=== PATIENT | male | born 1990 ===

== ENCOUNTER → 2024-08-02 15:47 | Outpatient (BNVA) | payer OTHER, SELFPAY | PROVIDERS: PCP Nurse Practitioner Family; Visit Provider Internal Medicine ==

== ENCOUNTER 2024-09-29 12:35 | Outpatient (AMB) | payer OTHER, SELFPAY ==
--- NOTE | 2024-09-29 12:35 | MHC.OFFVIS ---
Intake Visit Reasons: Diarrhea Intake Note: Demarco presents as a telehealth for diarrhea. CC: States he went to [place] in January and he felt sick to his stomach. They did procedures and he was told he has gastritis and a bacteria in his stomach. He was given 40 days of antibiotics as treatment. He states the bacteria was H Pylori. HE still has some GERD but states that it is not as bad as it was before. 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 Reports developed abd pain, nausea and diarrhea when he was in [place] back in Jan. Had an egd/colo done there and was prescribed amoxicillin x 10 days omeprazole for 40 days. Sx improved with this. Now main CC is occasional heartburn for which he takes tums. No further abd pain, N,V,D. No unnitentional weight loss. No rectal bleeding. Father: colon ca in his 70s. [facility] Surgical History (Updated 09/29/24 @ 12:36 by ALICE Sousa) History of esophagogastroduodenoscopy (EGD) Hx of colonoscopy Review of Systems Const All systems reviewed & are unremarkable except as noted in HPI and below Physical Exam Vital Signs: Video visit: No acute distress No icterus noted No facial asymmetry Speaking in full sentences Telehealth Telehealth Telehealth Platform: [facility] Location of provider rendering services: practice address Location of patient: address on file Patient Identification confirmed using: Name, : Yes Telehealth method: video Patient verbally consented to treatment: Yes Patient verbally consented to billing insurance company: Yes Patient informed of any privacy concerns related to visit: Yes Minutes spent on Phone/Video with Pt.: 20 Assessment & Plan Assessment & Plan (1) GERD (gastroesophageal reflux disease): Code(s): K21.9 - Gastro-esophageal reflux disease without esophagitis Category: Medical (2) History of gastritis: Code(s): Z87.19 - Personal history of other diseases of the digestive system Category: Medical (3) Family history of colon cancer: Code(s): Z80.0 - Family history of malignant neoplasm of digestive organs Category: Medical Plan 1. Unclear infection back in Jan 2024. Could potentially have been H pylori, especially given report of concurrent gastritis. Will get a test of cure. Plan: -stool H pylori testing done -patient aware to avoid anti secretory medications for 2 weeks prior to testing done 2. Pyrosis: Likely secondary to GERD versus esophagitis versus NERD. Plan: -check barium swallow -okay to take Tums p.r.n. for now -if GERD confirmed in a barium swallow, would recommend Pepcid 3. Family history of colon cancer Patient aware to start screening early, that is at 40 years of age. Follow-up in 2 months Orders: Orders [place] barium swallow Today K21.9 - Gastro-esophageal reflux disease without esophagitis H pylori Ag Stool Today Z87.19 - Personal history of other diseases of the digestive system Coding Level of Care Code New Pt Level 4 (13280) Diagnoses GERD (gastroesophageal reflux disease) K21.9 History of gastritis Z87.19 Family history of colon cancer Z80.0
--- OUTSIDE RECORDS SUMMARY | 2024-09-29 13:13 | XMS_ITS | Clinical Summary ---
Author Organization [facility] Address [address] [place] [address] Phone Care Team Providers Care Service Captain Name Role Phone Tasia Peguero MD Primary Care Prov ider Allergies No known active allergies Medications fluticasone propionate (FLONASE) 50 mcg/actuation nasal spray 1 [place] by Nasal route daily. 1 spray each nostril daily 12/02/2020 Active Active Problems Problem Noted Date Diagnosed Date Chronic headaches 11/08/2017 Overview (07/05/2024): Abnormal CAT scan MRI 06/09/17 has been to see neurology diagnosed with headaches no further workup needed Immunizations Name Administration Dates Next Due Influenza Quadravalent, MDCK , 0.5ml, with preservative (Flucelvax) 6mo and older 05/03/2017 Influenza Quadrivalent, 0.5m l, preservative free (Fluarix; FluLaval; Fluzone) ages 6mo and older (Afluria) 3yo and older 04/19/2020 Surgical History Surgery Date Site/Laterality Comments OTHER SURGICAL HISTORY PROCEDURE: DENIES PREVIOUS SURGERY Medical History Medical History Date Comments Patient denies medical problems DX:Patient denies medical problems Tobacco abuse 05/03/2017 DX:Tobacco abuse Chronic headaches 11/08/2017 DX:Chronic hea daches; COMMENT: Abnormal CAT scan MRI 06/09/17 has been to see neurology diagnosed with headaches no further workup needed Family History Medical History Relation Name Comments Hyperlipidemia Father Hypertension Father Other: history of trichonosis Father Hyperlipidemia Mother Hypertension Mother Other: cancer unknown Sister pancre atic at age 32 Relation Name Status Comments Father Alive Mother Alive Sister Social History Tobacco Use Types Packs/Day Years Used Date Smoking Tobacco: Former Smokeless Tobacco: Never Alcohol Use Standard Drinks/Week Comments No 0 (1 standard drink = 0.6 oz pur e alcohol) Sex and Gender Information Value Date Recorded Sex Assigned at Not on file Legal Sex Male 3:03 PM EST Gender Identity Not on file Sexual Orientation Not on file Obstetrics History Plan of Treatment Health Maintenance Due Date Last Done Comments Hepatitis B Vaccines (1 of 3 - 19+ 3-dose series) 01/13/2008 Depression Screening 05/20/2022 HIV Screening 05/20/2022 Social Influencers of Health Screening 05/20/2022 COVID-19 Vaccine (3 - 2023-2 5 season) 2024 10/27/2020, 10/06/2020 Influenza Vaccine (Season Ended) 2025 04/19/2020, 05/03/2017 Cholesterol Screening (Lipid Panel) 08/17/2027 08/17/2022, 08/17/2022, 07/21/2019 DTaP,Tdap,and Td Vaccines (2 - Td or Tdap) 01/19/2029 01/19/2019 Hepatitis C Screening Completed 08/17/2022 , 11/06/2020 HIB Vaccines Aged Out No longer eligi ble based on patient's age to complete this topic HPV Vaccines Aged Out No longer eligi ble based on patient's age to complete this topic Hepatitis A Vaccines Aged Out No long er eligible based on patient's age to complete this topic IPV Vaccines Aged Out No longer eligi ble based on patient's age to complete this topic MMR Vaccines Aged Out No longer eligi ble based on patient's age to complete this topic Meningococcal ACWY Vaccine Aged Out N o longer eligible based on patient's age to complete this topic Meningococcal B Vaccine Aged Out No l onger eligible based on patient's age to complete this topic Pneumococcal Vaccine: Pediatrics (0 to 5 Years) and At-Risk Patients (6 to 64 Years) Aged Out No longer eligible b ased on patient's age to complete this topic RSV Immunization Patients Under 20 months Aged Out No longer eligible b ased on patient's age to complete this topic Varicella Vaccines Aged Out No longer eligible based on patient's age to complete this topic Procedures Procedure Name Priority Date/Time Associated Diagnosis Comments HM HEPATITIS C SCREENING Routine 11/06/2020 LIPID PANEL Routine 07/21/2019 from Last 3 Months or Most Recently Relevant to Health Maintenance Results * Hepatitis C Screening (11/06/2020) Hepatitis C Screening abstracted Historical Provider HEALTH MAINTENANCE Final Result * Lipid panel (07/21/2019) LDL/HDL Ratio 3 0 - 4 Triglycerides 95 0 - 150 mg/dL Cholesterol 152 0 - 200 mg/dL HDL 45 >=40 mg/dL LDL Cholesterol 88 0 - 100 mg/dL Blood Venous blood specimen / Unknown Historical Provider LAB BLOOD ORDERABLES Imani l Result from Last 3 Months or Most Recently Relevant to Health Maintenance Insurance [facility] [employer] Care Teams Service Captain Relationship Specialty Start Date End Date Tasia Peguero MD PCP - General Internal Medicine 03/09/17
--- OUTSIDE RECORDS SUMMARY | 2024-09-29 13:13 | XMS_ITS | Continuity of Care Document ---
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 Patient insisted he appreciates a bump on the left side of his throat that he can see in the mirror. A fiberoptic laryngoscopy was performed with excellent visualization of his nasopharynx and larynx and base of tongue with no lesions identified. Reassurance was given there are no malignancies or signs of infection. All structures are normal on my visualization. 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 No specific intervention is recommended at this time. He may stop his reflux regimen as he has found no relief after 3 months [email or web address] Not available 09/27/2024 09:05:42 Plan of Treatment Reminders Order Date Submit Date Provider Last Modified By Organization Details Last Modified Time Details Appointments None record ed. Lab None record ed. Referral None record ed. Procedures None record ed. Surgeries None record ed. Imaging None record ed. Medication Orders None record ed. Patient TargetsNo targets recorded. Patient InstructionsNo instructions recorded. Reason for Referral None Reported. Problems Name Problem SNOMED Code Status Onset Date Resolution Date Notes Provider Name and Address Organization Details Recorded Time Follow-up visit Active 2021 Medical surveilla nce following completed treatment ; Note: Date Diagnosed : 08/25/2021 10:15 AM (Z09) Medical surveilla nce following completed treatment ; Note: Date Diagnosed : 0 3:56 PM (Z09) ; Start Date : 0 Not Available [facility] 4 02:42:01 Nasal congestio n 39934415 Active 2020 Nasal congestio n; Note: Date Diagnosed : 1 9:36 AM (R09.81) Not Available [facility] 4 02:42:04 Deviated nasal septum 437588205 Active 2020 Deviated nasal septum; Note: Date Diagnosed : 1 9:45 AM (J34.2) Not Available [facility] 4 02:42:04 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 25445858 Active 2019 Otosclero sis involving oval window, nonoblite rative, right ear; Note: Date Diagnosed : 03/25/2020 12:39 PM (H80.01) Not Available [facility] 4 02:41:57 Hypertrop hy of nasal turbinate s 83370777 Active 2020 Hypertrop hy of nasal turbinate s; Note: Date Diagnosed : 1 9:45 AM (J34.3) Not Available [facility] 4 02:41:59 Tinnitus of left ear 67484563583 06 Active 2019 Tinnitus, left ear; Note: Date Diagnosed : 10/17/2019 1:26 PM (H93.12) Not Available [facility] 4 02:41:59 Abnormal auditory perceptio n 26237203 Active 2020 Other abnormal auditory perceptio ns, right ear; Note: Date Diagnosed : 10/31/2020 12:52 PM (H93.291) Not Available [facility] 4 02:42:01 Hearing loss of left ear 392492159 Active 2019 Unspecifi ed hearing loss, left ear; Note: Date Diagnosed : 10/17/2019 1:26 PM (H91.92) Not Available [facility] 4 02:42:02 Polyp of nasal cavity 372193738 Active 2021 Polyp of nasal cavity; Note: Date Diagnosed : 08/18/2021 1:50 PM (J33.0) Not Available [facility] 4 02:41:56 Tinnitus of right ear 71627366772 08 Active 2019 Tinnitus, right ear; Note: Date Diagnosed : 12/19/2019 4:30 PM (H93.11) Not Available [facility] 4 02:42:05 Conductiv e hearing loss 68664626 Active 2019 Conductiv e hearing loss, unilatera l, right ear, with unrestric pooja hearing on the contralat eral side; Note: Date Diagnosed : 12/19/2019 4:30 PM (H90.11) Not Available [facility] 4 02:42:06 Nicotine dependenc e 58684620 Active 2023 Nicotine dependenc e, other tobacco product, uncomplic ated; Note: Date Diagnosed : 06/24/2023 1:29 PM (F17.290) Not Available [facility] 02:42:03 Postopera tive follow-up visit Active 2021 Post op; Note: Date Diagnosed : 07/23/2014 1:04 PM (V67.00) Not Available [facility] 4 02:41:58 Posterior rhinorrhe a 63675926 Active 2023 Postnasal drip; Note: Date Diagnosed : 06/24/2023 1:29 PM (R09.82) Not Available [facility] 02:42:07 Feeling of lump in throat 098422839 Active 2023 DARREN CRABTREE MD [address] [place] [address],[place] [address], [place], [address] , [place] - [facility] 4 13:40:38 Laryngoph aryngeal reflux 013690658 Active 2024 WILLIAN LINDSAY PA-C [address] [facility],[place] [address], [place], [address] , [place] - [facility] 5 10:01:15 Clearing throat - hawking 747179508 Active 2024 DARREN CRABTREE MD [address] [place] [address],[place] [address], [place], [address] , [place] - [facility] 5 08:10:03 Problem Notes None recorded. Procedures Surgical History Date Name Laterality Status Provider Name and Address Organization Details Recorded Time 5 FOL_DP completed DARREN CRABTREE MD [address] [facility],[place] [address], [place], [address], [place] - [facility] 09/27/2024 09:04:22 4 FOL_DP completed DARREN CRABTREE MD [address] [facility], [place], [address], [place] - [facility] 11/19/2023 13:40:31 2 Septoplasty completed Neris Delarosa [place] - [facility] 11/19/2023 13:14:04 0 stapes operation completed Neris Delarosa [facility] 11/19/2023 13:13:37 Imaging Results None recorded. Procedure Notes None recorded. Medical Equipment None Reported. Allergies No known drug allergies Medications Name Sig Start Date Stop Date Status Note LastModified by Organization Details LastModified Time Saline Mist 0.65 % nasal spray aerosol 11/18 completed Medicatio n ID: [id number] Du ration Value: 30 Prescrib ed By Name: LESLIE Parks Name: Saline Mist Send Method: E-Prescri bed Subs Allowed: subs OK Specia l Instructi on: 2 sprays in both nostrils 4-6 times daily as needed Me dicationG enericNam e: Saline Mist Medi cation ID: [id number] Du ration Value: 30 Prescrib ed By Name: LESLIE Parks Name: Saline Mist Send Method: E-Prescri bed Subs Allowed: subs [place] Specia l Instructi on: 2 sprays in both nostrils 4-6 times daily as needed Me dicationG enericNam e: Saline Mist Not Available Not Available Not Available Ciloxan 0.3 % eye drops 11/18 completed Medicatio n ID: [id number] Du ration Value: 14 Prescrib ed By Name: LESLIE Crowe Name: Ciloxan S end Method: E-Prescri bed Subs Allowed: subs OK Specia l Instructi on: 4 drops into affected ear BID X 14 days Medi cationGen ericName: Ciloxan M edication ID: [id number] Du ration Value: 14 Prescrib ed By Name: LESLIE Crowe Name: Ciloxan S end Method: E-Prescri bed Subs Allowed: subs [place] Specia l Instructi on: 4 drops into affected ear BID X 14 days Medi cationGen ericName: Ciloxan Not Available Not Available Not Available mupirocin 2 % topical ointment Apply 1 a small amount twice a day 07/05 completed Medicatio n ID: [id number] Du ration Value: 14 Prescrib ed By Name: Lazaro rhodes MD Brand Name: mupirocin Send Method: E-Prescri bed Subs Allowed: subs OK Medica tiFacundo icName: mupirocin Not Available Not Available Not Available oxycodone 5 mg tablet 1 tablet by mouth 11/18 completed Medicatio n ID: [id number] Du ration Value: 3 Prescrib ed By Name: Gloria Steen Name: oxycodone Send Method: E-Prescri bed Subs Allowed: subs OK Medica Fernando icName: oxycodone Medicati on ID: [id number] Du ration Value: 3 Prescrib ed By Name: Golria Steen Name: oxycodone Send Method: E-Prescri bed Subs Allowed: subs OK Medica tionGener icName: oxycodone Not Available Not Available Not Available Vitals Date Recorded Body height Body mass index (BMI) Body weight Provider Name and Address Organization Details Last Updated DateTime 09/27/2024 167.64 cm 34.7 kg/m2 96095.36 g LINA CESPEDES [facility] 09/27/2024 08:55:20 Social History None recorded. Functional Status None recorded. Mental Status None recorded. Family History Nothing Reported. Medical History No medical history recorded. Past Encounters Encounter ID Performer Location Encounter Start Date Encounter Closed Date Diagnosis/Indication Diagnosis SNOMED-CT Code Diagnosis ICD10 Code Diagnosis Note [id number] DARREN CRABTREE MD [facility] [address] [facility] [place] [address] 09/27/2024 08:45:13 09/27/2024 11:38:20 Feeling of lump in throat 292892445 R09.89 Health Concerns Section Related Observation LastModified by Organization Detai ls LastModified Time None Recorded Concern Status LastModified by Organization Details LastModified Time None Recorded Payers Encounter Date Sequence Insurance Name Policy Number Policy Alcaraz Covered Member ID Alcaraz Member ID Guarantor Name 09/27/2024 1 [facility] [id number] Demarco Doss [id number] Demarco Doss Notes Date Note Type Note Provider Name and Address Organization Details Recorded Time 09/27/2024 text/html globusreports he has a 2 yr hx of mucus in throat in [facility] it is thicksees a bump on left side of throat06/24/23 nasal endoscopy was benign11/19/23 FOL benigntobacco - <1/2ppd, was able to stop since 06/2023water - 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 advised smoking cessation PSH:08/18/21 [facility], Moon, septo, turbs1/11/07 [facility], Jose Enrique, Right laser stapes DARREN CRABTREE MD [address] [address], [place], [address], [facility] - [facility] 09/27/2024 09:05:55
--- OUTSIDE RECORDS SUMMARY | 2024-09-29 13:13 | XMS_ITS | Data Portability ---
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 He feels it is worse in the morning. Previously a nasal endoscopy was benign. A fiberoptic laryngoscopy was performed today which was also unremarkable. He feels the sensation present at this very moment while I am looking directly at it it appears clear with no sign of infection or masses. I have given him reassurance and congratulated him on his smoking cessation. Given the benign findings I recommended he use nasal saline and stay well-hydrated as the mucus is otherwise normal. He appeared in moderate disbelief and inquired whether it is possible something from his chest is reaching his throat. While reflux is considered, I do not see any evidence of any mucous in his throat at this time despite his sensation. [email or web address] Not available 11/19/2023 13:42:12 07/05/2024 07/05/2024 Patient with globus, throat clearing, and phlegm in the throat. No nasal symptoms. Physical exam unrevealing. Laryngoscopy previously benign October 2023. Reviewed differential diagnosis to include laryngopharyngea l reflux most likely versus less likely nasal causes such as postnasal drip. Reviewed his 30 day trial of low dose omeprazole may not have been long enough or strong enough to combat the LPR. Recommend 90 day trial of omeprazole 40 mg taken 30 minutes before first food or beverage of the day, along with famotidine 40 mg every evening. Return in 3 months; if not improved or resolved would consider CT sinus +/- allergy testing. [email or web address] Not available 07/05/2024 10:55:11 09/27/2024 09/27/2024 Thorough examination of the oropharynx [...] Details Last Modified Time Details Appointments None recorded. Lab None recorded. Referral None recorded. Procedures None recorded. Surgeries None recorded. Imaging None recorded. Medication Orders omeprazole 40 mg capsule,del ayed release 2024 025 [facility]armacy #[id number], [address] [place] [address], [id number], 5 08:55:30 famotidine 40 mg tablet 2024 025 [facility]armacy #[id number], [address] [place] [address], [id number], 08:55:28 Patient TargetsNo targets recorded. Patient InstructionsNo instructions recorded. Reason for Referral None Reported. Results Created Date Observation Date Name Description Value Unit Range Abnormal Flag Note LastModifiedBy Organization Detail LastModifiedTime 02/09/20 24 10/21/2020 imagi ng/di agnos tic resul t No observ ation record ed. [email or web address] Not Available 20:40:12 02/09/20 24 12/19/2019 imagi ng/di agnos tic resul t No observ ation record ed. [email or web address] Not Available 20:40:30 02/09/20 24 05/14/2020 imagi ng/di agnos tic resul t No observ ation record ed. [email or web address] Not Available 20:40:45 Result Notes None recorded. Problems Name Problem SNOMED Code Status Onset Date Resolution Date Notes Provider Name and Address Organization Details Recorded Time Follow-up visit Active 2021 Medical surveilla nce following completed treatment ; Note: Date Diagnosed : 08/25/2021 10:15 AM (Z09) Medical surveilla nce following completed treatment ; Note: Date Diagnosed : 0 3:56 PM (Z09) ; Start Date : 0 Not Available [facility] 4 02:42:01 Nasal congestio n 52641760 Active 2020 Nasal congestio n; Note: Date Diagnosed : 1 9:36 AM (R09.81) Not Available [facility] 4 02:42:04 Deviated nasal septum 296813973 Active 2020 Deviated nasal septum; Note: Date Diagnosed : 1 9:45 AM (J34.2) Not Available [facility] 4 02:42:04 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 48308005 Active 2019 Otosclero sis involving oval window, nonoblite rative, right ear; Note: Date Diagnosed : 03/25/2020 12:39 PM (H80.01) Not Available [facility] 4 02:41:57 Hypertrop hy of nasal turbinate s 21033014 Active 2020 Hypertrop hy of nasal turbinate s; Note: Date Diagnosed : 1 9:45 AM (J34.3) Not Available [facility] 4 02:41:59 Tinnitus of left ear 23050409515 06 Active 2019 Tinnitus, left ear; Note: Date Diagnosed : 10/17/2019 1:26 PM (H93.12) Not Available [facility] 4 02:41:59 Abnormal auditory perceptio n 35329395 Active 2020 Other abnormal auditory perceptio ns, right ear; Note: Date Diagnosed : 10/31/2020 12:52 PM (H93.291) Not Available [facility] 4 02:42:01 Hearing loss of left ear 772396702 Active 2019 Unspecifi ed hearing loss, left ear; Note: Date Diagnosed : 10/17/2019 1:26 PM (H91.92) Not Available [facility] 4 02:42:02 Polyp of nasal cavity 742476747 Active 2021 Polyp of nasal cavity; Note: Date Diagnosed : 08/18/2021 1:50 PM (J33.0) Not Available [facility] 4 02:41:56 Tinnitus of right ear 62423970334 08 Active 2019 Tinnitus, right ear; Note: Date Diagnosed : 12/19/2019 4:30 PM (H93.11) Not Available [facility] 4 02:42:05 Conductiv e hearing loss 19518774 Active 2019 Conductiv e hearing loss, unilatera l, right ear, with unrestric pooja hearing on the contralat eral side; Note: Date Diagnosed : 12/19/2019 4:30 PM (H90.11) Not Available [facility] 4 02:42:06 Nicotine dependenc e 69099579 Active 2023 Nicotine dependenc e, other tobacco product, uncomplic ated; Note: Date Diagnosed : 06/24/2023 1:29 PM (F17.290) Not Available [facility] 4 02:42:03 Postopera tive follow-up visit Active 2021 Post op; Note: Date Diagnosed : 07/23/2014 1:04 PM (V67.00) Not Available [facility] 4 02:41:58 Posterior rhinorrhe a 19211549 Active 2023 Postnasal drip; Note: Date Diagnosed : 06/24/2023 1:29 PM (R09.82) Not Available [facility] 4 02:42:07 Feeling of lump in throat 647860598 Active 2023 DARREN CRABTREE MD [address] [place] [address], [place], [address] , [facility] - [facility] 4 13:40:38 Laryngoph aryngeal reflux 198166972 Active 2024 WILLIAN LINDSAY PA-C [address] [facility],[place] [address], [place], [address] , [facility] - [facility] 5 10:01:15 Clearing throat - hawking 332898466 Active 2024 DARREN CRABTREE MD [address] [facility],[place] [address], [place], [address] , [facility] - [facility] 5 08:10:03 Problem Notes None recorded. Procedures Surgical History Date Name Laterality Status Provider Name and Address Organization Details Recorded Time 5 FOL_DP completed DARREN CRABTREE MD [address] [place] [address],[place] [address], [place], [address], [facility] - [facility] 09/27/2024 09:04:22 4 FOL_DP completed DARREN CRABTREE MD [address] [place] [address],[place] [address], [place], [address], [place] - [facility] 11/19/2023 13:40:31 2 Septoplasty completed Neris Delarosa [place] - [facility] 11/19/2023 13:14:04 0 stapes operation completed Neris Delarosa [place] - [facility] 11/19/2023 13:13:37 Imaging Results Imaging Date Name Status LastModified by Organ [facility] Details LastModified Time 10/21/2020 imaging/diag nostic result completed Information not available 02/09/2024 20:40:12 12/19/2019 imaging/diag nostic result completed Information not available 02/09/2024 20:40:30 05/14/2020 imaging/diag nostic result completed Information not available 02/09/2024 20:40:45 Procedure Notes None recorded. Medical Equipment None Reported. Allergies No known drug allergies Medications Name Sig Start Date Stop Date Status Note LastModified by Organization Details LastModified Time Saline Mist 0.65 % nasal spray aerosol 03/07/ 2022 05/31 /2024 completed Medicatio n ID: [id number] Du ration Value: 30 Prescrib ed By Name: LESLIE Parks Name: Saline Mist Send Method: E-Prescri bed Subs Allowed: subs OK Specia l Instructi on: 2 sprays in both nostrils 4-6 times daily as needed Me dicationG enericNam e: Saline Mist Medi cation ID: [id number] Du ration Value: 30 Prescrib ed By Name: LESLIE Parks Name: Saline Mist Send Method: E-Prescri bed Subs Allowed: subs [place] Specia l Instructi on: 2 sprays in both nostrils 4-6 times daily as needed Me dicationG enericNam e: Saline Mist Not Available Not Available Not Available Ciloxan 0.3 % eye drops 11/18 completed Medicatio n ID: [id number] Du ration Value: 14 Prescrib ed By Name: LESLIE Crowe Name: Ciloxan S end Method: E-Prescri bed Subs Allowed: subs [place] Specia l Instructi on: 4 drops into affected ear BID X 14 days Medi cationGen ericName: Ciloxan M edication ID: [id number] Du ration Value: 14 Prescrib ed By Name: LESLIE Crowe Name: Ciloxan S end Method: E-Prescri bed Subs Allowed: subs [place] Specia l Instructi on: 4 drops into affected ear BID X 14 days Medi cationGen ericName: Ciloxan Not Available Not Available Not Available mupirocin 2 % topical ointment Apply 1 a small amount twice a day 07/05 completed Medicatio n ID: [id number] Du ration Value: 14 Prescrib ed By Name: Lazaro garcía MD Brand Name: mupirocin Send Method: E-Prescri bed Subs Allowed: subs OK Medica tionGener icName: mupirocin Not Available Not Available Not Available oxycodone 5 mg tablet 1 tablet by mouth 11/18 completed Medicatio n ID: [id number] Du ration Value: 3 Prescrib ed By Name: Gloria Steen d Name: oxycodone Send Method: E-Prescri bed Subs Allowed: subs OK Medica tionGener icName: oxycodone Medicati on ID: [id number] Du ration Value: 3 Prescrib ed By Name: Gloria Steen Name: oxycodone Send Method: E-Prescri bed Subs Allowed: subs [place] Medica tionGener icName: oxycodone Not Available Not Available Not Available Vitals Date Recorded Body height Body mass index (BMI) Body weight Provider Name and Address Organization Details Last Updated DateTime 09/27/2024 167.64 cm 34.7 kg/m2 17844.36 g LINA CESPEDES [place] - [facility] 09/27/2024 08:55:20 Date Recorded Body height Body mass index (BMI) Body weight Provider Name and Address Organization Details Last Updated DateTime 11/19/2023 167.64 cm 33.6 kg/m2 66555.21 g Neris Delarosa [place] - [facility] 11/19/2023 13:10:36 Date Recorded Body height Body mass index (BMI) Body weight Provider Name and Address Organization Details Last Updated DateTime 07/05/2024 167.64 cm 35.2 kg/m2 34595.14 g Kati Mccord [place] - [facility] 07/05/2024 09:47:24 Social History None recorded. Functional Status None recorded. Mental Status None recorded. Family History Nothing Reported. Medical History No medical history recorded. Past Encounters Encounter ID Performer Location Encounter Start Date Encounter Closed Date Diagnosis/Indication Diagnosis SNOMED-CT Code Diagnosis ICD10 Code Diagnosis Note [id number] DARREN CRABTREE MD [facility] [address] [address] 11/19/2023 12:57:32 11/19/2023 13:56:14 Feeling of lump in throat 550013638 R09.89 [id number] DARREN CRABTREE MD [facility] [address] [address] 07/05/2024 09:35:06 07/05/2024 10:04:27 Laryngopharyngeal reflux 606966832 K21.9 Feeling of lump in throat 085688655 R09.89 Clearing t hroat - hawking 761127546 R05.9 [id number] DARREN CRABTREE MD [facility] [address] [address] 09/27/2024 08:45:13 09/27/2024 11:38:20 Feeling of lump in throat 501358430 R09.89 Health Concerns Section Related Observation LastModified by Organization Detai ls LastModified Time None Recorded Concern Status LastModified by Organization Details LastModified Time None Recorded Advance Directives Directive None Recorded Payers Encounter Date Sequence Insurance Name Policy Number Policy Alcaraz Covered Member ID Alcaraz Member ID Guarantor Name 11/19/2023 1 [facility] NET PLAN (MEDICAID HMO) [id number] Demarco Rivasa [id number] Demarco García Romario 07/05/2024 1 [facility] [id number] Demarco R Romario [id number] Demarco García Romario 09/27/2024 1 [facility] [id number] Demarco R Romario [id number] Demarco R Romario Notes Date Note Type Note Provider Name and Address Organization Details Recorded Time 11/19/2023 text/html patient of Dr Loredo of septoplasty 08/18/21reports he has a 2 yr hx of mucus in throat in [facility] it is thicksometimes uvula gets stuck to side of throat06/24/23 nasal endoscopy was benign tobacco - <1/2ppd, was able to stop since 06/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 Reports he has constant sticky yellow phlegm in the back of the throat. Feels like his uvula gets caught in the phlegm. This leads to a sensation of inability to breathe through the throat. He clears his throat frequently. Has a globus sensation at the base of throat in the morning. He feels his voice has changed, sounds like I'm sick. None of this has improved since he quit smoking. He had endoscopy in [place] demonstrating h. pylori, but this was treated successfully without change in symptoms. He cannot specifically endorse postnasal drip, and there is no anterior rhinorrhea nor excessive sneezing. Denies pyrosis. There is intermittent sore throat which he attributes to his forceful attempts to bring the phlegm up. There has been no dysphagia and no hemoptysis. At an evaluation here 11/19/23, laryngoscopy was benign. He has tried antibiotics, 30 day course of omeprazole BID, and some nasal sprays. Nothing improved this. PSH:06/24/23 Plosky - mucus in throat, FOL normal. 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 advised smoking cessation PSH:08/18/21 PVSMoon Hatch septo, [email or web address] Jose Enrique LITTLE, Right laser stapes DARREN CRABTREE MD [address] [facility],[place] [address] [place] [address], [address], [place] - [facility] 09/27/2024 09:05:55
--- OUTSIDE RECORDS SUMMARY | 2024-09-29 13:13 | XMS_ITS | Clinical Summary ---
Author Organization [facility] Address [address] [place] [address] Care Team Providers Care Laundry Manager Name Role Phone Yasmany Pugh MD Primary Care Provider [phone] Source Comments PLEASE NOTE, if this patient is a minor, it may be UNLAWFUL to discuss sensitive information that is contained in these records (such as FAMILY PLANNING, MENTAL HEALTH or SUBSTANCE ABUSE) with the minor patient's parent or other person without the patient's specific authorization.[facility] Allergies No known active allergies Medications varenicline (CHANTIX) 1 mg tabletIndicatio ns:Encounter for smoking cessation counseling Take 1 Tablet by mouth 2 (two) times daily 60 Tablet 1 3 Active varenicline (CHANTIX STARTING MONTH ) 0.5 mg (11)- 1 mg (42) tabletIndicatio ns:Encounter for smoking cessation counseling UAD 1 Packet 3 Active loratadine (CLARITIN) 10 mg tabletIndicatio ns:Throat congestion Take 1 Tablet by mouth once daily as needed for allergies 90 Tablet 4 Active diphenhydrAMINE (BENADRYL) 50 mg capsuleIndicati ons:Throat congestion Take 1 Capsule by mouth nightly at bedtime as needed for allergies or rhinitis 90 Capsule 4 Active predniSONE 50 mg tablet Take 1 Tablet by mouth once daily 5 Tablet 4 Active clindamycin phosphate (CLINDAGEL) 1 % gel APPLY TO FACE AND SCALP TWICE DAILY AFTER BENZOYL PEROXIDE WASH 3 Active benzoyl peroxide (BENZAC AC) 10 % APPLY TO FACE AND SCALP TWICE A DAY AND RINSE 3 Active nystatin (MYCOSTATIN) 100,000 unit/mL suspensionIndic ations:Throat congestion Take 1 mL by mouth 4 (four) times daily 60 mL Active Active Problems Problem Noted Date Diagnosed Date Financial difficulties 01/26/2023 Housing problems 01/26/2023 Chronic cervical pain 01/26/2023 Overview (02/03/2023): EKG showed NSR, HR 88bpm Failed trial of NSAIDs and muscle relaxant CT cervical spine wo showed mild disc protrusion along cervical spine PT referral pending Ortho referral pending Assessment & Plan (05/03/2023 9:48 AM EST): Failed trial of NSAIDs and muscle relaxant CT cervical spine wo showed mild disc protrusion along cervical spine PT referral pending Ortho referral pending Tobacco use 08/17/2022 Overview (05/03/2023): Tried Chantix 01/26/23 but stopped as he did not find this helpful Assessment & Plan (05/03/2023 9:57 AM EST): Start Chantix 01/26/23, Pt stopped using this as he did not find this helpful Smokes 1 pack a week Pt declined tobacco cessation referral Declined NRT Assessment & Plan (01/26/2023 11:15 AM EDT): Start Chantix 01/26/23 Smokes 1 pack a week Pt declined tobacco cessation referral Declined NRT Hypertriglyceridemia 12/17/2014 History of snoring 10/29/2014 Overview (10/29/2014): Sleep Studies done 10/12/2014 at [facility] mild obstructive sleep apnea Obesity 09/10/2014 Immunizations Immunization Administration Dates Next Due TDAP 01/19/2019 Family History Medical History Relation Name Comments Cardiovascular disease Father Hypertension Father Prostate Cancer Father Cardiovascular disease Mother Hypertension Mother Cardiovascular disease Sister Relation Name Status Comments Brother Alive Father Alive Mother Alive Sister Alive Social History Tobacco Use Types Packs/Day Years Used Date Smoking Tobacco: Every Day Cigarettes 0.5 4 Passive Smoke Exposure: Never Smokeless Tobacco: Current Tobacco Cessation:Ready to Q uit: Not Asked; Counseling Given: Yes Alcohol Use Standard Drinks/Week Comments Yes 0 (1 standard drink = 0.6 oz pur e alcohol) Occassionally Social Connections Answer Date Recorded Connectedness 0 05/03/2023 Financial Resource Strain Answer Date R ecorded Financial Resource Strain 0 2022 Stress Answer Date Recorded Stress 0 05/03/2023 Physical Activity Answer Date Recorded Physical Activity 0 08/17/2022 Food Insecurity Answer Date Recorded Food 0 05/03/2023 Transportation Needs Answer Date Record ed Transportation 0 05/03/2023 Housing Stability Answer Date Recorded Housing 0 05/03/2023 Safety and Environment Answer Date Geronimo rded Safety 0 05/03/2023 Utilities Answer Date Recorded Utilities 0 05/03/2023 Employment Answer Date Recorded Employment 0 08/17/2022 Sex and Gender Information Value Date Recorded Sex Assigned at Male 08/17/2022 8:28 AM PST Legal Sex Male 11:36 AM PDT Gender Identity Male 08/17/2022 8:28 AM PST Sexual Orientation Straight 08/17/2022 8: 28 AM PST Last Filed Vital Signs Vital Sign Reading Time Taken Comments Blood Pressure 122/89 10/20/2023 8:45 AM EDT Pulse 94 10/20/2023 8:45 AM EDT Temperature 37.1 ??C (98.8 ??F) 10/20/2023 8:45 AM ED T Respiratory Rate 16 10/20/2023 8:45 AM EDT Oxygen Saturation 97% 05/03/2023 9:15 AM EST Inhaled Oxygen Concentration - - Weight 96.6 kg (213 lb) 09/02/2023 11:15 AM EDT Height 171 cm (5' 7.32 ) 06/22/2023 10:31 AM EST Body Mass Index 33.04 06/22/2023 10:31 AM EST Plan of Treatment Health Maintenance Due Date Last Done Comments Anxiety Screening 1989 Imm-Hepatitis B (1 of 3 - 19 + 3-dose series) 01/13/2008 Imm-Pneumococcal (1 of 2 - PCV) 01/13/2008 Annual Preventive Care Visit 08/17/2023 08/17/2022, 09/10/2014 [id number] ( - season) 2024 021, 10/06/2020 Imm-Influenza (#1) 2024 04/19/2020, 05/03/2017 Alcohol and Drug Screen 06/21/2024 08/17/2022, 08/25 Depression Annual Screen 06/21/2024 08/17/2022, 08/20 Hypertension Screening (#1) 10/19/2024 Tobacco Cessation Counseling (#1) 10/19/2024 023 Diabetes Screening 08/17/2025 08/17/2022, 0 08/17/2022, 02/28/2014 Imm-DTaP/Tdap/Td (2 - Td or Tdap) 01/19/2029 019 HIV Screening Completed 08/17/2022 Hepatitis C Screening Completed 08/17/2022 Procedures Procedure Name Priority Date/Time Associated Diagnosis Comments HIV 1/2 AG & AB W/RFLX (4TH GEN) Routine 08/17/2022 11:32 AM EST Exposure to potential infection HEPATITIS C AB W/RFLX HCV RNA, QT, RT PCR Routine 08/17/2022 11:32 AM EST Exposure to potential infection COMPREHENSIVE METABOLIC PANEL Routine 08/17/2022 11:32 AM EST BMI 31.0-31.9,adult from Last 3 Months or Most Recently Relevant to Health Maintenance Results * HEPATITIS C AB W/RFLX HCV RNA, QT, RT PCR (08/17/2022 11:32 AM EST) HEPATITIS C ANTIBODY NON-REACT SHON NON-REACT SHON [employer] SIGNAL TO CUT-OFF 0.05 <1.00 [facility] [employer] [facility] Comment: HCV antibody was non-reactive. There is no laboratory evidence of HCV infection. In most cases, no further action is required. However, if recent HCV exposure is suspected, a test for HCV RNA (test code 00540) is suggested. For additional information please refer to http://education.[employer]/faq/LDI89q5 (This link is being provided for informational/ educational purposes only.) Blood Blood / Unknown 08/17/2022 1 1:32 AM EST 08/17/2022 11:33 AM EST Narrative [employer] [facility] - 08/18/2022 3:31 PM EST FASTING:YES us Yasmany Pugh MD LAB - BLOOD DRAW Final Result Performing Organization Address [facility]/ZIP Co de Phone Number [employer] [facility] [address] [address], [employer] [address] [place] [address] * HIV 1/2 AG & AB W/RFLX (4TH GEN) (08/17/2022 11:32 AM EST) [facility] HIV AG/AB, 4TH GEN NON-REAC TIVE NON-REAC TIVE [employer] [facility] Comment: HIV-1 antigen and HIV-1/HIV-2 antibodies were not detected. There is no laboratory evidence of HIV infection. PLEASE NOTE: This information has been disclosed to you from records whose confidentiality may be protected by state law. ??If your state requires such protection, then the state law prohibits you from making any further disclosure of the information without the specific written consent of the person to whom it pertains, or as otherwise permitted by law. A general authorization for the release of medical or other information is NOT sufficient for this purpose. ?? For additional information please refer to http://education.[employer]/faq/ZIB086 (This link is being provided for informational/ educational purposes only.) The performance of this assay has not been clinically validated in patients less than 2 years old. Blood Blood / Unknown 08/17/2022 1 1:32 AM EST 08/17/2022 11:33 AM EST Narrative [employer] [facility] - 08/18/2022 3:31 PM EST FASTING:YES us Yasmany Pugh MD LAB - BLOOD DRAW Final Result Performing Organization Address [facility]/ZIP Co de Phone Number [employer] [facility] [address] [address], [employer] [address]) [place] [address] * (ABNORMAL) COMPREHENSIVE METABOLIC PANEL (08/17/2022 11:32 AM EST) GLUCOSE 92 65 - 99 mg/dL [employer] [facility] Comment: ?Fasting reference interval UREA NITROGEN (BUN) 15 7 - 25 mg/dL [employer] [facility] CREATININE (blood) 0.89 0.60 - 1.26 mg/dL [employer] [facility] EGFR 116 > OR = 60 mL/min/1 .73m2 [employer] [facility] Comment: The eGFR is based on the CKD-EPI 2020 equation. To calculate the new eGFR from a previous Creatinine or Cystatin C result, go to https://www.kidney.org/professionals/ kdoqi/gfr%5Fcalculator BUN/CREATININE RATIO NOT APPLICABLE 6 - [employer] [facility] SODIUM 138 135 - 146 mmol/L [employer] [facility] POTASSIUM 4.7 3.5 - 5.3 mmol/L [employer] [facility] CHLORIDE 103 98 - 110 mmol/L [employer] [facility] CARBON DIOXIDE 28 20 - 32 mmol/L [employer] [facility] CALCIUM 10.2 8.6 - 10.3 mg/dL [employer] [facility] PROTEIN, TOTAL 8.4(H) 6.1 - 8.1 g/dL [employer] [facility] ALBUMIN 4.8 3.6 - 5.1 g/dL [employer] [facility] GLOBULIN 3.6 1.9 - 3.7 g/dL (calc) [employer] [facility] ALBUMIN/GLOBUL IN RATIO 1.3 1.0 - 2.5 (calc) [employer] [facility] BILIRUBIN, TOTAL 0.4 0.2 - 1.2 mg/dL [employer] [facility] ALKALINE PHOSPHATASE 87 36 - 130 U/L [employer] [facility] AST 26 10 - 40 U/L [employer] [facility] ALT 45 9 - 46 U/L [employer] [facility] Blood Blood / Unknown 08/17/2022 1 1:32 AM EST 08/17/2022 11:33 AM EST Narrative [facility] [facility] - 08/18/2022 3:31 PM EST FASTING:YES Yasmany Pugh MD LAB - BLOOD DRAW Edited Result - Final [employer] [facility] [address] [address], [facility] [address]) [place] [address] from Last 3 Months or Most Recently Relevant to Health Maintenance Insurance [place] MED[place] [employer] [employer] Member Subscriber Plan / Payer (Ef fective 2023-Present) Name:Alfredito Evansley R Relation to Subscriber:Self Name:Alfredito Evansmiladis García Payer ID:[id number] Type:Medicaid Address: [address] [address] [place] [address] Care Teams Laundry Manager Relationship Specialty Start Date End Date Yasmany Pugh MD [address] [place] [address] PCP - General Family Medicine, Physician 11/02/22
== END 2024-09-29 15:51 | disposition home or self-care (01) ==
LOC: HO.HGI 12:35
PROVIDERS: PCP Nurse Practitioner Family; Visit Provider Internal Medicine
DX: K21.9 Gastro-esophageal reflux disease without esophagitis (principal); Z87.19 Personal history of other diseases of the digestive system; Z80.0 Family history of malignant neoplasm of digestive organs
CPT/HCPCS: 99204

== ENCOUNTER → 2024-09-29 12:35 | Outpatient (BNVA) | payer OTHER, SELFPAY | PROVIDERS: PCP Nurse Practitioner Family; Visit Provider Internal Medicine | DX: K21.9 Gastro-esophageal reflux disease without esophagitis (principal); R19.7 Diarrhea, unspecified; R10.9 Unspecified abdominal pain; Z80.0 Family history of malignant neoplasm of digestive organs; Z87.19 Personal history of other diseases of the digestive system | CPT/HCPCS: 99202 ==

== ENCOUNTER 2024-12-29 08:10 | Outpatient (REF) | payer OTHER, SELFPAY ==
--- NOTE | ~2024-12-29 | FL_ITS ---
EXAMINATION: XR FLUOROSCOPY ESOPHAGRAM CLINICAL INFORMATION: Patient complaining of reflux type symptoms x1 year. Mild globus sensation. 34-year-old male. COMPARISON: None TECHNIQUE: Fluoroscopic air contrast barium swallow examination was performed utilizing standard techniques with thin and thick barium and effervescent granules. Numerous spot images were obtained. Several fluoroscopic image hold cine sequences were also obtained. FINDINGS: ESOPHAGRAM: Lateral cine images of the oropharynx and hypopharynx demonstrate normal swallow mechanism with normal epiglottic inversion and soft palate elevation. No laryngeal penetration, glottic or subglottic aspiration identified. No nasopharyngeal reflux present. Hypopharyngeal structures appear normal without evidence of mass or diverticulum. There was no significant cricopharyngeal achalasia. Dual and single contrast images of the esophagus demonstrate normal caliber, contour, and mucosal pattern. No evidence of stricture, mass, or ulcerations identified. Esophageal peristalsis was normal. No evidence of hiatus hernia identified. There was mild gastroesophageal reflux noted during the examination to the level of the aortic arch. Dual contrast and single contrast images of the stomach demonstrated normal contour and mucosal pattern without evidence of mass, ulceration, or other abnormality. Normal gastric rugal fold pattern. Contrast freely passed into the gastric antrum and duodenal bulb without delay. Single and air-contrast images of the duodenal bulb demonstrate no abnormality. The duodenal sweep has a normal appearance, course, and mucosal fold appearance. There is a small second segment duodenal diverticulum. FLUOROSCOPY TIME: 2 minutes, 20 seconds Number of Spot Images:11 Number of cines obtained: 10 DOSE AREA PRODUCT: [id number] uGy-m2 (microgray-meter squared) FL/FL barium swallow with air IMPRESSION: 1. Normal esophagus. No evidence of hiatus hernia. 2. Mild gastroesophageal reflux noted to the level of the aortic arch. 3. Normal-appearing GE junction and stomach. 4. Small second segment duodenal diverticulum. Electronically signed by: Aldo Gibson MD 12/29/2024 08:56 AM EDT
--- OUTSIDE RECORDS SUMMARY | 2024-12-29 08:13 | XMS_ITS | Clinical Summary ---
Author Organization [facility] Address [address] [place] [address] Care Team Providers Care Lithographing Machine Operator Name Role Phone Yasmany Pugh MD Primary Care Provider [phone] Source Comments PLEASE NOTE, if this patient [...] Overview (10/29/2014): Sleep Studies done 10/12/2014 at [facility] mild obstructive sleep apnea Obesity 09/10/2014 Immunizations [...] 94 10/20/2023 8:45 AM EDT Temperature 37.1 C (98.8 F) 10/20/2023 8:45 AM EDT Respiratory Rate 16 10/20/2023 8:45 AM EDT [...] (1 of 2 - PCV) 01/13/2008 Annual Wellness (Adult): Ind icated (All Coverage) 08/17/2023 08/17/2022, 09/10/2014 Tobacco Screening 08/17/2023 08/17/2022 [id number] ( - 2024-25 season) 2024 021, 10/06/2020 Alcohol and Drug Screen 06/21/2024 08/17/2022, 08/25 Depression Annual Screen 06/21/2024 08/17/2022, 08/20 Hypertension Screening (#1) 10/19/2024 Tobacco Cessation Counseling (#1) 10/19/2024 023 Imm-Influenza (#1) 2025 04/19/2020, 05/03/2017 Diabetes Screening 08/17/2025 08/17/2022, 0 08/17/2022, 02/28/2014 [...] HEPATITIS C ANTIBODY NON-REACT SHON NON-REACT SHON [employer] SIGNAL TO CUT-OFF 0.05 <1.00 [facility] Comment: HCV antibody was non-reactive. There is no laboratory evidence of HCV infection. In most cases, no further action is required. However, if recent HCV exposure is suspected, a test for HCV RNA (test code 46490) is suggested. For additional information please refer to http://education.Intense/faq/IOG27j1 (This link is being provided for informational/ educational purposes only.) Blood Blood / Unknown 08/17/2022 1 1:32 AM EST 08/17/2022 11:33 AM EST Narrative [facility] - 08/18/2022 3:31 PM EST FASTING:YES us Yasmany Pugh MD LAB - BLOOD DRAW Final Result Performing Organization Address [facility] de Phone Number [facility] [address] [address], [facility] [address] ([facility] [place] [address] * HIV 1/2 AG & AB W/RFLX (4TH GEN) (08/17/2022 11:32 AM EST) [facility] HIV AG/AB, 4TH GEN NON-REAC TIVE NON-REAC TIVE [facility] Comment: HIV-1 antigen and HIV-1/HIV-2 antibodies were not detected. There is no laboratory evidence of HIV infection. PLEASE NOTE: This information has been disclosed to you from records whose confidentiality may be protected by state law. If your state requires such protection, then the state law prohibits you from making any further disclosure of the information without the specific written consent of the person to whom it pertains, or as otherwise permitted by law. A general authorization for the release of medical or other information is NOT sufficient for this purpose. For additional information please refer to http://education.Kihon.[employer]/faq/HYJ155 (This link is being provided for informational/ educational purposes only.) The performance of this assay has not been clinically validated in patients less than 2 years old. Blood Blood / Unknown 08/17/2022 1 1:32 AM EST 08/17/2022 11:33 AM EST Narrative [facility] - 08/18/2022 3:31 PM EST FASTING:YES us Yasmany Pugh MD LAB - BLOOD DRAW Final Result Performing Organization Address City/[facility]/ZIP Co de Phone Number [facility] [address] [address], [facility] [address] ([facility]) [place] [address] * (ABNORMAL) COMPRE METAB PANEL (08/17/2022 11:32 AM EST) GLUCOSE 92 65 - 99 mg/dL [facility] Comment: Fasting reference interval UREA NITROGEN (BUN) 15 7 - 25 mg/dL [facility] CREATININE (blood) 0.89 0.60 - 1.26 mg/dL [facility] EGFR 116 > OR = 60 mL/min/1 .73m2 [facility] Comment: The eGFR is based on the CKD-EPI 2020 equation. To calculate the new eGFR from a previous Creatinine or Cystatin C result, go to https://www.kidney.org/professionals/ kdoqi/gfr%5Fcalculator BUN/CREATININE RATIO NOT APPLICABLE 6 - [facility] SODIUM 138 135 - 146 mmol/L [facility] POTASSIUM 4.7 3.5 - 5.3 mmol/L [facility] CHLORIDE 103 98 - 110 mmol/L [facility] CARBON DIOXIDE 28 20 - 32 mmol/L [facility] CALCIUM 10.2 8.6 - 10.3 mg/dL [facility] PROTEIN, TOTAL 8.4(H) 6.1 - 8.1 g/dL [facility] ALBUMIN 4.8 3.6 - 5.1 g/dL [facility] GLOBULIN 3.6 1.9 - 3.7 g/dL (calc) [facility] ALBUMIN/GLOBUL IN RATIO 1.3 1.0 - 2.5 (calc) [facility] BILIRUBIN, TOTAL 0.4 0.2 - 1.2 mg/dL [facility] ALKALINE PHOSPHATASE 87 36 - 130 U/L [facility] AST 26 10 - 40 U/L [facility] ALT 45 9 - 46 U/L [facility] Blood Blood / Unknown 08/17/2022 1 1:32 AM EST 08/17/2022 11:33 AM EST Narrative [facility] - 08/18/2022 3:31 PM EST FASTING:YES Yasmany Pugh MD LAB - BLOOD DRAW Edited Result - Final [facility] [address] [address], [facility] [address] ([address]) [place] [address] from Last 3 Months or Most Recently Relevant to Health Maintenance Insurance [place] MEDICAID D[employer]AL [employer] Member Subscriber Plan / Payer (Ef fective 2023-Present) Name:Demarco Evans Relation to Subscriber:Self Name:Demarco Evans Payer ID:[id number] Type:Medicaid Address: [facility] [address] [place] [address] Care Teams Lithographing Machine Operator Relationship Specialty Start Date End Date Yasmany Pugh MD [address] [place] [address] PCP - General Family Medicine, Physician 11/02/22
--- OUTSIDE RECORDS SUMMARY | 2024-12-29 08:13 | XMS_ITS | Data Portability ---
Author Organization [place] - [facility], Allergy Address [address] [place] [address] Care Team Providers Care Compliance Intern Name Role Phone JUSTIN GOODE Primary Care [...] 40 mg capsule,del ayed release 2024 025 [facility][id number], [address] [place] [address], [id number], 08:55:30 famotidine 40 mg tablet 2024 025 [facility][id number], [address] [place] [address], [id number], 08:55:28 Patient TargetsNo targets recorded. Patient InstructionsNo instructions recorded. Reason for Referral None Reported. 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 12503423 Active 2019 Otosclero sis involving oval window, nonoblite rative, right ear; Note: Date Diagnosed : 03/25/2020 12:39 PM (H80.01) Not Available [facility] 4 02:41:57 Hypertrop hy of nasal turbinate s 00963349 Active 2020 Hypertrop hy of nasal turbinate s; Note: Date Diagnosed : 1 9:45 AM (J34.3) Not Available [facility] 4 02:41:59 Tinnitus of left ear 53680553842 06 Active 2019 Tinnitus, left ear; Note: Date Diagnosed : 10/17/2019 1:26 PM (H93.12) Not Available [facility] 4 02:41:59 Abnormal auditory perceptio n 43908633 Active 2020 Other abnormal auditory perceptio ns, right ear; Note: Date Diagnosed : 10/31/2020 12:52 PM (H93.291) Not Available [facility] 4 02:42:01 Hearing loss of left ear 641695126 Active 2019 Unspecifi ed hearing loss, left ear; Note: Date Diagnosed : 10/17/2019 1:26 PM (H91.92) Not Available [facility] 4 02:42:02 Polyp of nasal cavity 586982564 Active 2021 Polyp of nasal cavity; Note: Date Diagnosed : 08/18/2021 1:50 PM (J33.0) Not Available [facility] 4 02:41:56 Tinnitus of right ear 31461981212 08 Active 2019 Tinnitus, right ear; Note: Date Diagnosed : 12/19/2019 4:30 PM (H93.11) Not Available [facility] 4 02:42:05 Conductiv e hearing loss 60856358 Active 2019 Conductiv e hearing loss, unilatera l, right ear, with unrestric pooja hearing on the contralat eral side; Note: Date Diagnosed : 12/19/2019 4:30 PM (H90.11) Not Available [facility] 4 02:42:06 Nicotine dependenc e 27253544 Active 2023 Nicotine dependenc e, other tobacco product, uncomplic ated; Note: Date Diagnosed : 06/24/2023 1:29 PM (F17.290) Not Available [facility] 4 02:42:03 Postopera tive follow-up visit Active 2021 Post op; Note: Date Diagnosed : 07/23/2014 1:04 PM (V67.00) Not Available [facility] 4 02:41:58 Posterior rhinorrhe a 67861227 Active 2023 Postnasal drip; Note: Date Diagnosed : 06/24/2023 1:29 PM (R09.82) Not Available [facility] 4 02:42:07 Feeling of lump in throat 298346065 Active 2023 DARREN CRABTREE MD [address] [place] [address], [place], [address] , [place] - [facility] 4 13:40:38 Laryngoph aryngeal reflux 321934110 Active 2024 RAJNI LINDSAY PA-C [address] [facility],[place] [address], [place], [address] , [place] - [facility] 5 10:01:15 Clearing throat - hawking 860379470 Active 2024 DARREN CRABTREE MD [address] [place] [address],[place] [address], [facility] [place], [address] , [place] - [facility] 5 08:10:03 Problem Notes None recorded. Procedures Surgical History Date Name Laterality Status Provider Name and Address Organization Details Recorded Time 5 FOL_DP completed DARREN CRABTREE MD [address] [place] [address],[place] [address], [place], [address], [place] - [facility] 09/27/2024 09:04:22 4 FOL_DP completed DARREN CRABTREE MD [address] [place] [address],[place] [address], [place], [address], [place] - [facility] 11/19/2023 13:40:31 2 Septoplasty completed Neris Delarosa [place] - [facility] 11/19/2023 13:14:04 0 stapes operation completed Neris Delarosa [place] - [facility] 11/19/2023 13:13:37 Imaging Results None recorded. Procedure Notes None recorded. Medical Equipment None Reported. Allergies No known drug allergies Medications Name Sig Start Date Stop Date Status Note LastModified by Organization Details LastModified Time Saline Mist 0.65 % nasal spray aerosol 11/18 completed Medicati on ID: [id number] D uration Value: 30 Prescri bed By Name: LESLIE Santos nd Name: Saline Mist Sen d Method: E-Prescr ibed Sub s Allowed: subs OK Speci al Instruct ion: 2 sprays in both nostrils 4-6 times daily as needed M miguel atielodia nGeneric Name: Saline Mist Med ication ID: [id number] D uration Value: 30 Prescri bed By Name: Mercedes CollierLESLIE srivastava nd Name: Saline Mist Sen d Method: E-Prescr ibed Sub s Allowed: subs OK Speci al Instruct ion: 2 sprays in both nostrils 4-6 times daily as needed Atul Gonzalez Name: Saline Mist Not Available Not Available Not Available famotidin e 40 mg tablet Take 1 tablet every day by oral route in the evening for 30 days. 09/27 completed Not Available Not Available Not Available Ciloxan 0.3 % eye drops 11/18 completed Medicati on ID: [id number] D uration Value: 14 Prescri bed By Name: LESLIE Crowe nd Name: Ciloxan Send Method: E-Prescr ibed Sub s Allowed: subs OK Speci al Instruct ion: 4 drops into affected ear BID X 14 days Med icationG enericNa me: Ciloxan Medicati on ID: [id number] D uration Value: 14 Prescri bed By Name: LESLIE Crowe nd Name: Ciloxan Send Method: E-Prescr ibed Sub s Allowed: subs OK Speci al Instruct ion: 4 drops into affected ear BID X 14 days Med icationG enericNa me: Ciloxan Not Available Not Available Not Available omeprazol e 40 mg capsule,d elayed release Take 1 capsule every day by oral route before meal(s) for 30 days. 09/27 completed Not Available Not Available Not Available mupirocin 2 % topical ointment Apply 1 a small amount twice a day 07/05 completed Medicati on ID: [id number] D uration Value: 14 Prescri bed By Name: Lazaro ortiz MD Brand Name: mupiroci n Send Method: E-Prescr ibed Sub s Allowed: subs OK Medic ationGen ericName : mupiroci n Not Available Not Available Not Available oxycodone 5 mg tablet 1 tablet by mouth 11/18 completed Medicati on ID: [id number] D uration Value: 3 Prescri bed By Name: Gloria Steen nd Name: oxycodon e Send Method: E-Prescr ibed Sub s Allowed: subs OK Medic ationGen ericName : oxycodon e Medica tion ID: [id number] D uration Value: 3 Prescri bed By Name: Gloria Steen nd Name: oxycodon e Send Method: E-Prescr ibed Sub s Allowed: subs OK Medic ationGen ericName : oxycodon e Not Available Not Available Not Available Vitals Date Recorded Body height Body mass index (BMI) Body weight Provider Name and Address Organization Details Last Updated DateTime 07/05/2024 167.64 cm 35.2 kg/m2 11356.14 g Kati Mccord [place] [facility] 07/05/2024 09:47:24 Date Recorded Body height Body mass index (BMI) Body weight Provider Name and Address Organization Details Last Updated DateTime 09/27/2024 167.64 cm 34.7 kg/m2 22387.36 g LINA CESPEDES [place] [facility] 09/27/2024 08:55:20 Date Recorded Body height Body mass index (BMI) Body weight Provider Name and Address Organization Details Last Updated DateTime 11/19/2023 167.64 cm 33.6 kg/m2 02148.21 g Neris Delarosa [facility] 11/19/2023 13:10:36 Social History None recorded. Functional Status None recorded. Mental Status None recorded. Family History Nothing Reported. Medical History No medical history recorded. Past Encounters Encounter ID Performer Location Encounter Start Date Encounter Closed Date Diagnosis/Indication Diagnosis SNOMED-CT Code Diagnosis ICD10 Code Diagnosis Note [id number] DARREN CRABTREE MD [facility] [address] [address] 11/19/2023 12:57:32 11/19/2023 13:56:14 Feeling of lump in throat 736419821 R09.89 [id number] RAJNI LINDSAY PA-C [facility] [address] [address] 07/05/2024 09:35:06 07/05/2024 10:04:27 Laryngopharyngeal reflux 516465234 K21.9 Feeling of lump in throat 232701898 R09.89 Clearing t hroat - hawking 594496681 R05.9 [id number] DARREN CRABTREE MD [facility] [address] [place] [address] 09/27/2024 08:45:13 09/27/2024 11:38:20 Feeling of lump in throat 638991709 R09.89 Health Concerns Section Related Observation LastModified by Organization Detai ls LastModified Time None Recorded Concern Status LastModified by Organization Details LastModified Time None Recorded Advance Directives Directive None Recorded Payers Insurance Date Sequence Insurance Name Policy Number Policy Alcaraz Covered Member ID Alcaraz Member ID Guarantor Name 09/22/2024 1 [facility] [id number] Demarco Doss [id number] Demarco Doss 07/05/2024 1 [facility] NET PLAN (MEDICAID HMO) [id number] Demarco Doss [id number] Demarco Doss Notes Date Note Type Note Provider Name and Address Organization Details Recorded Time 11/19/2023 text/html patient of Dr Loredo of septoplasty 08/18/21reports he has a 2 yr hx of mucus in throat in [facility] it is thicksometimes uvula gets stuck to side of throat06/24/23 nasal endoscopy was benign tobacco - <1/2ppd, was able to stop since 06/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 He had endoscopy in [place] demonstrating h. 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 advised smoking cessation PSH:08/18/21 Moon LITTLE septo, turbs1 Jose Enrique LITTLE, Right laser stapes DARREN CRABTREE MD [address] [place] [address],[address], [address], [place] - [facility] 09/27/2024 09:05:55
--- OUTSIDE RECORDS SUMMARY | 2024-12-29 08:13 | XMS_ITS | Clinical Summary ---
Author Organization [facility] Address [address] [place] [address] Phone Care Team Providers Care Longwall Headgate Operator Name Role Phone Tasia Peguero MD Primary Care Prov ider Allergies No known active allergies Medications fluticasone propionate (FLONASE) 50 mcg/actuation nasal spray 1 [place] by Nasal route daily. 1 spray each [...] 5 season) 2024 10/27/2020, 10/06/2020 Influenza Vaccine (#1) 2025 , 05/03/2017 Cholesterol Screening (Lipid Panel) 08/17/2027 08/17/2022, [...] 5 Years) and At-Risk Patients (6 to 49 Years) Aged Out No longer eligible b [...] Most Recently Relevant to Health Maintenance Insurance [facility] Care Teams Longwall Headgate Operator Relationship Specialty Start Date End Date Tasia Peguero MD PCP - General Internal Medicine 03/09/17
== END 2024-12-29 08:11 | disposition home or self-care (01) ==
LOC: HO.XRAY 08:10
PROVIDERS: Visit Provider Internal Medicine
DX: K21.9 Gastro-esophageal reflux disease without esophagitis (principal)
CPT/HCPCS: 74221

== ENCOUNTER → 2024-12-29 08:11 | Outpatient (BNV) | payer OTHER, SELFPAY | PROVIDERS: Visit Provider Radiology Diagnostic Radiology | DX: K21.9 Gastro-esophageal reflux disease without esophagitis (principal) | CPT/HCPCS: 74221 ==

== ENCOUNTER 2025-04-18 08:21 | Outpatient (REF) | payer OTHER, SELFPAY ==
--- OUTSIDE RECORDS SUMMARY | 2025-04-18 08:43 | XMS_ITS | Clinical Summary ---
Author Organization [facility] Address [address] [place] [address] Phone Care Team Providers Care Altitude Chamber Technician Name Role Phone Tasia Peguero MD Primary Care Prov ider Allergies No known active allergies Medications fluticasone propionate (FLONASE) 50 mcg/actuation nasal spray 1 [place] by Nasal route daily. 1 spray each nostril daily 12/02/2020 Active Active Problems Problem Noted Date Diagnosed Date Chronic headaches 11/08/2017 Overview (07/05/2024): Abnormal CAT scan MRI 06/09/17 has been to see neurology diagnosed with headaches no further workup needed Immunizations Immunization Administration Dates Next Due Influenza Quadravalent, MDCK [...] of 3 - 19+ 3-dose series) 01/13/2008 HPV Vaccines (1 - 3-dose SCD M series) 01/13/2016 HIV Screening 05/20/2022 Social Influencers of Health Screening 05/20/2022 Depression Screening 06/21/2024 COVID-19 Vaccine (3 - 2024-2 6 season) 2025 10/27/2020, 10/06/2020 Influenza Vaccine (#1) 2025 , 05/03/2017 Cholesterol Screening (Lipid Panel) 08/17/2027 08/17/2022, 08/17/2022, 07/21/2019 DTaP,Tdap,and Td Vaccines (2 - Td or Tdap) 01/19/2029 01/19/2019 RSV Immunization Adult Patients (1 - 1-dose 75+ series) 01/13/2064 Hepatitis C Screening Completed 08/17/2022 , 11/06/2020 [...] Procedure Name Priority Date/Time Associated Diagnosis Comments HEPATITIS C SCREENING Routine 11/06/2020 LIPID PANEL [...] Most Recently Relevant to Health Maintenance Insurance [facility] Care Teams Altitude Chamber Technician Relationship Specialty Start Date End Date Tasia Peguero MD PCP - General Internal Medicine 03/09/17
--- OUTSIDE RECORDS SUMMARY | 2025-04-18 08:43 | XMS_ITS | Data Portability ---
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 Patient InstructionsNo [...] Name and Address Organization Details Recorded Time Tinnitus of left ear 63839375095 06 Active 2019 Tinnitus, left ear; Note: Date Diagnosed : 10/17/2019 1:26 PM (H93.12) Not Available [facility] 4 02:41:59 Hearing loss of left ear 744910169 Active 2019 Unspecifi ed hearing loss, left ear; Note: Date Diagnosed : 10/17/2019 1:26 PM (H91.92) Not Available [facility] 4 02:42:02 Tinnitus of right ear 40847772514 08 Active 2019 Tinnitus, right ear; Note: Date Diagnosed : 12/19/2019 4:30 PM (H93.11) Not Available [facility] 4 02:42:05 Conductiv e hearing loss 42391231 Active 2019 Conductiv e hearing loss, unilatera l, right ear, with unrestric pooja hearing on the contralat eral side; Note: Date Diagnosed : 12/19/2019 4:30 PM (H90.11) Not Available [facility] 4 02:42:06 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 29140844 Active 2019 Otosclero sis involving oval window, nonoblite rative, right ear; Note: Date Diagnosed : 03/25/2020 12:39 PM (H80.01) Not Available [facility] 4 02:41:57 Abnormal auditory perceptio n 66987165 Active 2020 Other abnormal auditory perceptio ns, right ear; Note: Date Diagnosed : 10/31/2020 12:52 PM (H93.291) Not Available [facility] 4 02:42:01 Nasal congestio n 52562098 Active 2020 Nasal congestio n; Note: Date Diagnosed : 1 9:36 AM (R09.81) Not Available [facility] 4 02:42:04 Deviated nasal septum 222013374 Active 2020 Deviated nasal septum; Note: Date Diagnosed : 1 9:45 AM (J34.2) Not Available [facility] 4 02:42:04 Hypertrop hy of nasal turbinate s 05988380 Active 2020 Hypertrop hy of nasal turbinate s; Note: Date Diagnosed : 1 9:45 AM (J34.3) Not Available [facility] 4 02:41:59 Polyp of nasal cavity 792154263 Active 2021 Polyp of nasal cavity; Note: Date Diagnosed : 08/18/2021 1:50 PM (J33.0) Not Available [facility] 4 02:41:56 Follow-up visit Active 2021 Medical surveilla nce following completed treatment ; Note: Date Diagnosed : 08/25/2021 10:15 AM (Z09) Medical surveilla nce following completed treatment ; Note: Date Diagnosed : 0 3:56 PM (Z09) ; Start Date : 0 Not Available [facility] 4 02:42:01 Postopera tive follow-up visit Active 2021 Post op; Note: Date Diagnosed : 07/23/2014 1:04 PM (V67.00) Not Available [facility] 4 02:41:58 Nicotine dependenc e 30242002 Active 2023 Nicotine dependenc e, other tobacco product, uncomplic ated; Note: Date Diagnosed : 06/24/2023 1:29 PM (F17.290) Not Available [facility] 4 02:42:03 Posterior rhinorrhe a 93692859 Active 2023 Postnasal drip; Note: Date Diagnosed : 06/24/2023 1:29 PM (R09.82) Not Available [facility] 4 02:42:07 Feeling of lump in throat 935993828 Active 2023 DARREN CRABTREE MD [address] [place] [address], [place], [address] , [place] - [facility] 4 13:40:38 Laryngoph aryngeal reflux 774579726 Active 2024 Rajni vyas, [place] - [facility] 5 10:01:15 Clearing throat - hawking 034621135 Active 2024 DARREN CRABTREE MD [address] [place] [address],[place] [address], [place], [address] , [place] - [facility] 5 08:10:03 Problem Notes None recorded. Procedures Surgical History Date Name Laterality Status Provider Name and Address Organization Details Recorded Time 5 FOL_DP completed DARREN CRABTREE MD [address] [place] [address],[place] [address], [place], [address], [facility] - [facility] 09/27/2024 09:04:22 4 FOL_DP completed DARREN CRABTREE MD [address] [place] [address],[place] [address], [place], [address], [facility] - [facility] 11/19/2023 13:40:31 2 Septoplasty completed Neris Delarosa [place] - [facility] 11/19/2023 13:14:04 0 stapes operation completed Neris Delarosa [place] - [facility] 11/19/2023 13:13:37 Imaging Results None recorded. Procedure Notes None recorded. Medical Equipment None Reported. Allergies No known drug allergies Medications Name Sig Start Date Stop Date Status Note LastModified by Organization Details LastModified Time Saline Mist 0.65 % nasal spray aerosol 11/18 completed Medicati on ID: [id number] D uration Value: 30 Prescri bed By Name: LESLIE Santos nd Name: Saline Mist Sen d Method: E-Prescr ibed Sub s Allowed: subs OK Speci al Instruct ion: 2 sprays in both nostrils 4-6 times daily as needed M edicatio nGeneric Name: Saline Mist Med ication ID: [id number] D uration Value: 30 Prescri bed By [...] eye drops 11/18 completed Medicati on ID: [id number] D uration Value: 14 Prescri bed By Name: LESLIE Crowe nd Name: Ciloxan Send Method: E-Prescr ibed Sub s Allowed: subs OK Speci al Instruct ion: 4 drops into affected ear BID X 14 days Med icationG enericNa me: Ciloxan Medicati on ID: [id number] D uration Value: 14 Prescri bed By [...] a day 07/05 completed Medicati on ID: [id number] D uration Value: 14 Prescri bed By Name: Lazaro ortiz MD Brand Name: mupiroci n Send Method: E-Prescr ibed Sub s Allowed: subs OK Medic ationGen ericName : mupiroci n Not Available Not Available Not Available oxycodone 5 mg tablet 1 tablet by mouth 11/18 completed Medicati on ID: [id number] D uration Value: 3 Prescri bed By Name: Gloria Steen nd Name: oxycodon e Send Method: E-Prescr ibed Sub s Allowed: subs OK Medic ationGen ericName : oxycodon e Medica tion ID: [id number] D uration Value: 3 Prescri bed By Name: Gloria Steen nd Name: oxycodon e Send Method: E-Prescr ibed Sub s Allowed: subs OK Medic ationGen ericName : oxycodon e Not Available Not Available Not Available Vitals Date Recorded Body height Body mass index (BMI) Body weight Provider Name and Address Organization Details Last Updated DateTime 07/05/2024 167.64 cm 35.2 kg/m2 91282.14 g Kati Flex [facility] 07/05/2024 09:47:24 Date Recorded Body height Body mass index (BMI) Body weight Provider Name and Address Organization Details Last Updated DateTime 09/27/2024 167.64 cm 34.7 kg/m2 89377.36 g LINA COY [facility] 09/27/2024 08:55:20 Date Recorded Body height Body mass index (BMI) Body weight Provider Name and Address Organization Details Last Updated DateTime 11/19/2023 167.64 cm 33.6 kg/m2 05768.21 g Neris Delarosa [facility] 11/19/2023 13:10:36 Social History None recorded. Functional Status None recorded. Mental Status None recorded. Family History Nothing Reported. Medical History No medical history recorded. Past Encounters Encounter ID Performer Location Encounter Start Date Encounter Closed Date Diagnosis/Indication Diagnosis SNOMED-CT Code Diagnosis ICD10 Code Diagnosis IMO Codes Diagnosis Note [id number] DARREN CRABTREE MD [facility] [address] [address] 11/19/2023 12:57:32 11/19/2023 13:56:14 Feeling of lump in throat 721616737 R09.89 [id number] RAJNI LINDSAY PA-C [facility] [address] [address] 07/05/2024 09:35:06 07/05/2024 10:04:27 Laryngopharyngeal reflux 400017936 K21.9 Feeling of lump in throat 244070770 R09.89 Clearing t hroat - hawking 553074987 R05.9 [id number] DARREN CRABTREE MD [facility] [address] [address] 09/27/2024 08:45:13 09/27/2024 11:38:20 Feeling of lump in throat 370847005 R09.89 Health Concerns Section Related Observation LastModified by Organization Detai ls LastModified Time None Recorded Concern Status LastModified by Organization Details LastModified Time None Recorded Advance Directives Directive None Recorded Payers Insurance Date Sequence Insurance Name Policy Number Policy Alcaraz Covered Member ID Alcaraz Member ID Guarantor Name 09/22/2024 1 [facility] [id number] Demarco Doss [id number] Demarco Doss 07/05/2024 1 [facility] (MEDICAID HMO) [id number] Demarco Doss [id number] Demarco Doss Notes Date Note Type Note Provider Name and Address Organization Details Recorded Time 11/19/2023 text/html ROS as noted in the HPI patient of Dr Loredo of septoplasty 08/18/21reports he has a 2 yr hx of mucus in throat in [facility] it is thicksometimes uvula gets stuck to side of throat06/24/23 nasal endoscopy was benign tobacco - <1/2ppd, was able to stop since 06/2023water - 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 - [facility] 11/19/2023 13:42:45 07/05/2024 text/html ROS as noted in the HPI 34 year old male presents for re-evaluation. [...] he quit smoking. He had endoscopy in [place] demonstrating h. pylori, but this was treated [...] Right laser stapes DARREN CRABTREE MD [address] [facility],[address], [address], [place] - [facility] 07/05/2024 16:44:28 09/27/2024 text/html ROS as noted in the HPI globusreports he has a 2 yr hx of mucus in throat in [facility] it is thicksees a bump on [...] Right laser stapes DARREN CRABTREE MD [address] [facility],[address], [address], [place] - [facility] 09/27/2024 09:05:55
== END 2025-04-18 08:22 | disposition home or self-care (01) ==
LOC: HO.XRAY 08:21
PROVIDERS: Visit Provider Internal Medicine
DX: Z13.89 Encounter for screening for other disorder (principal)

== ENCOUNTER 2025-04-23 09:35 | Outpatient (AMB) | payer OTHER, SELFPAY ==
--- NOTE | 2025-04-23 09:54 | A.OFFVIS_ITS ---
Vital Signs 04/23/25 10:07 Height 5 ft 6 in Weight 199 lb BMI 32.1 BP 111/67 Blood Pressure Location Lt brachial Position Sitting Pulse 64 Intake Visit Reasons: f/u reflux disease / BA swallow Intake Note: Watson returns to in office follow up for BA swallow results and reflux disease. CC: Patient reports that he continues to feel like very thick clear phlegm is stuck in his throat. Denies other GI symptoms today. Allergies No Known Allergies Allergy (Verified 04/23/25 10:13) HPI Comments Details: 34 y.o M with PMH of who is here for abd pain. Reports developed abd pain, nausea and diarrhea when he was in [place] back in Jan. Had an egd/colo done there and was prescribed amoxicillin x 10 days omeprazole for 40 days. Sx improved with this. Now main CC is occasional heartburn for which he takes tums. No further abd pain, N,V,D. No unnitentional weight loss. No rectal bleeding. Father: colon ca in his 70s. Barium swallow IMPRESSION: 1. Normal esophagus. No evidence of hiatus hernia. 2. Mild gastroesophageal reflux noted to the level of the aortic arch. 3. Normal-appearing GE junction and stomach. 4. Small second segment duodenal diverticulum. 04/23/25: He is presenting for follow up today. Main CC is sensation of something stuck in his throat. A recent barium swallow was done due to his heartburn, showing no esophageal narrowing, esophagitis or gastritis. Mild GERD. His heartburn has actually resolved. He ceased famotidine use a month ago. Despite the improvement in heartburn, the sensation persists, with reported occasional dryness affecting swallowing. Recently, the patient lost 20 pounds, which he views positively. H Pylori test is still pending. --- Pt was informed and consented to the use of ambient scribe for this encounter. --- [facility] Medical History Status post placement of bone anchored hearing aid (BAHA) Surgical History History of esophagogastroduodenoscopy (EGD) Hx of colonoscopy Family History Father Colon cancer Social History Alcohol intake: current Alcohol intake frequency: a few times a month Comment: Drinks socially per PT Patient Tobacco Use Status: Former Tobacco user Tobacco use type: Cigarette Cigarette Packs Per Day: 5 Years Smoked: 3 Use of substances other than those prescribed or required for medical reasons: No Review of Systems Const All systems reviewed & are unremarkable except as noted in HPI and below Physical Exam Vital Signs: Last Vital Signs Pulse 64 04/23/25 10:07 BP 111/67 04/23/25 10:07 BMI result Body Mass Index 32.1 Assessment & Plan Assessment & Plan (1) Globus sensation: Code(s): R09.89 - Other specified symptoms and signs involving the circulatory and respiratory systems (2) GERD (gastroesophageal reflux disease): Code(s): K21.9 - Gastro-esophageal reflux disease without esophagitis Category: Medical (3) History of gastritis: Code(s): Z87.19 - Personal history of other diseases of the digestive system Category: Medical (4) Family history of colon cancer: Code(s): Z80.0 - Family history of malignant neoplasm of digestive organs Category: Medical Plan 1. Possible Esophageal Dysphagia DDx includes globus sensation, EoE, cricopharyngeal narrowing. Plan: - EGD with +/- dil and biopsies. 2. Gastroesophageal Reflux Disease (GERD) - Heartburn currently resolved. - H Pylori breath test to be done in office. Follow up after EGD Coding Level of Care Code Est Pt Level 4 (22860) Diagnoses Globus sensation R09.89 GERD (gastroesophageal reflux disease) K21.9 History of gastritis Z87.19 Family history of colon cancer Z80.0
[2025-04-23 10:07] VITALS: BP 111/67; PULSE 64; BMI 32.1
--- OUTSIDE RECORDS SUMMARY | 2025-04-23 11:00 | XMS_ITS | Clinical Summary ---
Author Organization [facility] Address [address] [place] [address] Care Team Providers Care Aviation Consultant Name Role Phone Sravani Garcia SHAJI Primary Care Provider Source Comments PLEASE NOTE, if this patient [...] mouth 4 (four) times daily 60 mL 4 Active Active Problems Problem Noted Date Diagnosed [...] Overview (10/29/2014): Sleep Studies done 10/12/2014 at [facility] mild obstructive sleep apnea Obesity 09/10/2014 Immunizations [...] Imm-Pneumococcal (1 of 2 - PCV) 01/13/2008 Imm-HPV (1 - Risk 3-dose SCDM series) 01/13/2016 Annual Wellness (Adult): Ind icated (All Coverage) 08/17/2023 08/17/2022, 09/10/2014 Tobacco Screening 08/17/2023 08/17/2022 Alcohol and Drug Screen 06/21/2024 08/17/2022, 08/25 Depression Annual Screen 06/21/2024 08/17/2022, 08/20 Hypertension Screening (#1) 10/19/2024 Tobacco Cessation Counseling (#1) 10/19/2024 023 [id number] ( season) 2025 021, 10/06/2020 Imm-Influenza (#1) 2025 04/19/2020, 05/03/2017 Diabetes Screening [...] HEPATITIS C ANTIBODY NON-REACT SHON NON-REACT SHON [facility] SIGNAL TO CUT-OFF 0.05 <1.00 [facility] Comment: HCV antibody was non-reactive. There is no laboratory evidence of HCV infection. In most cases, no further action is required. However, if recent HCV exposure is suspected, a test for HCV RNA (test code 67685) is suggested. For additional information please refer to http://education.[employer]/faq/BCH14w9 (This link is being provided for informational/ educational purposes only.) Blood Blood / Unknown 08/17/2022 1 1:32 AM EST 08/17/2022 11:33 AM EST Narrative [facility] - 08/18/2022 3:31 PM EST FASTING:YES us Yasmany Pugh MD LAB - BLOOD DRAW Final Result Performing Organization Address [facility] de Phone Number [facility] [address] [address], [facility] [address] ([facility]) [place] [address] * HIV 1/2 AG & AB W/RFLX (4TH GEN) (08/17/2022 11:32 AM EST) HIV AG/AB, 4TH GEN NON-REAC TIVE NON-REAC TIVE [facility] Comment: HIV-1 antigen and HIV-1/HIV-2 antibodies [...] purpose. For additional information please refer to http://education.Zhanzuo.Biofuelbox/faq/SWK163 (This link is being provided for informational/ educational purposes only.) The performance of this assay has not been clinically validated in patients less than 2 years old. Blood Blood / Unknown 08/17/2022 1 1:32 AM EST 08/17/2022 11:33 AM EST Narrative [facility] - 08/18/2022 3:31 PM EST FASTING:YES us Yamsany Pugh MD LAB - BLOOD DRAW Final Result Performing Organization Address [facility]/ZIP Co de Phone Number [facility] [address] [address], [facility] [address] [facility] ([address]) [place] [address] * (ABNORMAL) COMPRE METAB PANEL (08/17/2022 11:32 AM EST) GLUCOSE 92 65 - 99 mg/dL [facility] Comment: Fasting reference interval UREA NITROGEN (BUN) 15 7 - 25 mg/dL [facility] CREATININE (blood) 0.89 0.60 - 1.26 mg/dL [facility] EGFR 116 > OR = 60 mL/min/1 .73m2 [facility] Comment: The eGFR is based on the CKD-EPI 2020 equation. To calculate the new eGFR from a previous Creatinine or Cystatin C result, go to https://www.kidney.org/professionals/ kdoqi/gfr%5Fcalculator BUN/CREATININE RATIO NOT APPLICABLE 6 - [facility] SODIUM 138 135 - 146 mmol/L [facility] POTASSIUM 4.7 3.5 - 5.3 mmol/L [facility] CHLORIDE 103 98 - 110 mmol/L [facility] CARBON DIOXIDE 28 20 - 32 mmol/L [facility] CALCIUM 10.2 8.6 - 10.3 mg/dL [facility] PROTEIN, TOTAL 8.4(H) 6.1 - 8.1 g/dL [facility] ALBUMIN 4.8 3.6 - 5.1 g/dL [facility] GLOBULIN 3.6 1.9 - 3.7 g/dL (calc) [facility] ALBUMIN/GLOBUL IN RATIO 1.3 1.0 - 2.5 (calc) [facility] BILIRUBIN, TOTAL 0.4 0.2 - 1.2 mg/dL [facility] ALKALINE PHOSPHATASE 87 36 - 130 U/L [facility] AST 26 10 - 40 U/L [facility] ALT 45 9 - 46 U/L [facility] Blood Blood / Unknown 08/17/2022 1 1:32 AM EST 08/17/2022 11:33 AM EST Narrative [facility] - 08/18/2022 3:31 PM EST FASTING:YES Yasmany Pugh MD LAB - BLOOD DRAW Edited Result - Final [facility] [address] [facility] [address] [place] [address], [facility] [address] [facility] ([address]) [place] [address] from Last 3 Months or Most Recently Relevant to Health Maintenance Insurance [place] [facility] PL[facility] Member Subscriber Plan / Payer (Ef fective 2023-Present) Name:Demarco Evans Relation to Subscriber:Self Name:Demarco Evans Payer ID:[id number] Type:Medicaid Address: [address] [address] [place] [address] Care Teams Aviation Consultant Relationship Specialty Start Date End Date Sravani Garcia FNP [address] [place] [address] PCP - General Family Medicine, INSPECTOR AIDE 12/29/24
--- OUTSIDE RECORDS SUMMARY | 2025-04-23 11:00 | XMS_ITS | Clinical Summary ---
Author Organization [facility] Address [address] [place] [address] Phone Care Team Providers Care Lead Injection Mold Technician Name Role Phone Tasia Peguero MD Primary Care Prov ider Allergies No known active allergies Medications fluticasone propionate (FLONASE) 50 mcg/actuation nasal spray 1 [place] by Nasal route daily. 1 spray each [...] Most Recently Relevant to Health Maintenance Insurance [facility] Care Teams Lead Injection Mold Technician Relationship Specialty Start Date End Date Tasia Peguero MD PCP - General Internal Medicine 03/09/17
--- OUTSIDE RECORDS SUMMARY | 2025-04-23 11:00 | XMS_ITS | Data Portability ---
Author Organization [place] - [facility], Allergy Address [address] [place] [address] Care Team Providers Care Customer Quality Specialist Name Role Phone JUSTIN GOODE Primary Care [...] 40 mg capsule,del ayed release 2024 025 [facility]/Pharmacy #[id number], [address] [place] [address], [id number], 08:55:30 famotidine 40 mg tablet 2024 025 [facility]armacy #1972, [address] [place] [address], [id number], 08:55:28 Patient TargetsNo targets recorded. Patient InstructionsNo [...] Details Recorded Time Tinnitus of left ear 45965600877 06 Active 2019 Tinnitus, left ear; Note: Date Diagnosed : 10/17/2019 1:26 PM (H93.12) Not Available [facility] 4 02:41:59 Hearing loss of left ear 207192076 Active 2019 Unspecifi ed hearing loss, left ear; Note: Date Diagnosed : 10/17/2019 1:26 PM (H91.92) Not Available [facility] 4 02:42:02 Tinnitus of right ear 50869913138 08 Active 2019 Tinnitus, right ear; Note: Date Diagnosed : 12/19/2019 4:30 PM (H93.11) Not Available [facility] 4 02:42:05 Conductiv e hearing loss 45762576 Active 2019 Conductiv e hearing loss, unilatera l, right ear, with unrestric pooja hearing on the contralat eral side; Note: Date Diagnosed : 12/19/2019 4:30 PM (H90.11) Not Available [facility] 4 02:42:06 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 66591024 Active 2019 Otosclero sis involving oval window, nonoblite rative, right ear; Note: Date Diagnosed : 03/25/2020 12:39 PM (H80.01) Not Available [facility] 4 02:41:57 Abnormal auditory perceptio n 79192695 Active 2020 Other abnormal auditory perceptio ns, right ear; Note: Date Diagnosed : 10/31/2020 12:52 PM (H93.291) Not Available [facility] 4 02:42:01 Nasal congestio n 75047323 Active 2020 Nasal congestio n; Note: Date Diagnosed : 1 9:36 AM (R09.81) Not Available [facility] 4 02:42:04 Deviated nasal septum 414818330 Active 2020 Deviated nasal septum; Note: Date Diagnosed : 1 9:45 AM (J34.2) Not Available [facility] 4 02:42:04 Hypertrop hy of nasal turbinate s 55164787 Active 2020 Hypertrop hy of nasal turbinate s; Note: Date Diagnosed : 1 9:45 AM (J34.3) Not Available [facility] 4 02:41:59 Polyp of nasal cavity 655080759 Active 2021 Polyp of nasal cavity; Note: Date Diagnosed : 08/18/2021 1:50 PM (J33.0) Not Available [facility] 4 02:41:56 Follow-up visit Active 2021 Medical surveilla nce following completed treatment ; Note: Date Diagnosed : 08/25/2021 10:15 AM (Z09) Medical surveilla nce following completed treatment ; Note: Date Diagnosed : 0 3:56 PM (Z09) ; Start Date : 0 Not Available [facility] 4 02:42:01 Postopera tive follow-up visit Active 2021 Post op; Note: Date Diagnosed : 07/23/2014 1:04 PM (V67.00) Not Available [facility] 4 02:41:58 Nicotine dependenc e 54995521 Active 2023 Nicotine dependenc e, other tobacco product, uncomplic ated; Note: Date Diagnosed : 06/24/2023 1:29 PM (F17.290) Not Available [facility] 4 02:42:03 Posterior rhinorrhe a 32235439 Active 2023 Postnasal drip; Note: Date Diagnosed : 06/24/2023 1:29 PM (R09.82) Not Available [facility] 4 02:42:07 Feeling of lump in throat 510601416 Active 2023 DARREN CRABTREE MD [address] [place] [address], [place], [address] , [place] - [facility] 4 13:40:38 Laryngoph aryngeal reflux 876480872 Active 2024 Rajni vyas, [place] - [facility] 5 10:01:15 Clearing throat - hawking 934025180 Active 2024 DARREN CRABTREE MD [address] [place] [address],[place] [address], [place], [address] , [place] - [facility] 5 08:10:03 Problem Notes None recorded. Procedures Surgical History Date Name Laterality Status Provider Name and Address Organization Details Recorded Time 5 FOL_DP completed DARREN CRABTREE MD [address] [place] [address],[place] [address], [place], [address], [facility] - [facility] 09/27/2024 09:04:22 4 FOL_DP completed DARREN CRABTREE MD [address] [place] [address],[place] [address], [place], [phone], [facility] - [facility] 11/19/2023 13:40:31 2 Septoplasty completed Neris Delarosa [place] - [facility] 11/19/2023 13:14:04 0 stapes operation completed Neris Delarosa [place] - [facility] 11/19/2023 13:13:37 Imaging Results None recorded. Procedure Notes None recorded. Medical Equipment None Reported. Allergies No known drug allergies Medications Name Sig Start Date Stop Date Status Note LastModified by Organization Details LastModified Time Saline Mist 0.65 % nasal spray aerosol 11/18 completed Medicati on ID: [id number] D uration Value: 30 Prescri bed By Name: LESLIE Santos nd Name: Saline Mist Sen d Method: E-Prescr ibed Sub s Allowed: subs OK Speci al Instruct ion: 2 sprays in both nostrils 4-6 times daily as needed M edicatio nGeneric Name: Saline Mist Med ication ID: [id number] D uration Value: 30 Prescri bed By [...] eye drops 11/18 completed Medicati on ID: [id number] D uration Value: 14 Prescri bed By Name: LESLIE Crowe nd Name: Ciloxan Send Method: E-Prescr ibed Sub s Allowed: subs OK Speci al Instruct ion: 4 drops into affected ear BID X 14 days Med icationG enericNa me: Ciloxan Medicati on ID: [id number] D uration Value: 14 Prescri bed By [...] a day 07/05 completed Medicati on ID: [id number] D uration Value: 14 Prescri bed By Name: Lazaro ortiz MD Brand Name: mupiroci n Send Method: E-Prescr ibed Sub s Allowed: subs OK Medic ationGen ericName : mupiroci n Not Available Not Available Not Available oxycodone 5 mg tablet 1 tablet by mouth 11/18 completed Medicati on ID: [id number] D uration Value: 3 Prescri bed By Name: Gloria Steen nd Name: oxycodon e Send Method: E-Prescr ibed Sub s Allowed: subs OK Medic ationGen ericName : oxycodon e Medica tion ID: [id number] D uration Value: 3 Prescri bed By Name: Gloria Steen nd Name: oxycodon e Send Method: E-Prescr ibed Sub s Allowed: subs OK Medic ationGen ericName : oxycodon e Not Available Not Available Not Available Vitals Date Recorded Body height Body mass index (BMI) Body weight Provider Name and Address Organization Details Last Updated DateTime 07/05/2024 167.64 cm 35.2 kg/m2 04737.14 g Kati Flex [facility] 07/05/2024 09:47:24 Date Recorded Body height Body mass index (BMI) Body weight Provider Name and Address Organization Details Last Updated DateTime 09/27/2024 167.64 cm 34.7 kg/m2 77074.36 g LINA COY [facility] 09/27/2024 08:55:20 Date Recorded Body height Body mass index (BMI) Body weight Provider Name and Address Organization Details Last Updated DateTime 11/19/2023 167.64 cm 33.6 kg/m2 12922.21 g Neris Delarosa [facility] 11/19/2023 13:10:36 Social History None recorded. Functional Status None recorded. Mental Status None recorded. Family History Nothing Reported. Medical History No medical history recorded. Past Encounters Encounter ID Performer Location Encounter Start Date Encounter Closed Date Diagnosis/Indication Diagnosis SNOMED-CT Code Diagnosis ICD10 Code Diagnosis IMO Codes Diagnosis Note [id number] DARREN CRABTREE MD [facility] [address] [address] 11/19/2023 12:57:32 11/19/2023 13:56:14 Feeling of lump in throat 020333128 R09.89 [id number] RAJNI LINDSAY PA-C [facility] [address] [address] 07/05/2024 09:35:06 07/05/2024 10:04:27 Laryngopharyngeal reflux 900308800 K21.9 Feeling of lump in throat 897797623 R09.89 Clearing t hroat - hawking 872787837 R05.9 [id number] DARREN CRABTREE MD [facility] [address] [address] 09/27/2024 08:45:13 09/27/2024 11:38:20 Feeling of lump in throat 578994166 R09.89 Health Concerns Section Related Observation LastModified by Organization Detai ls LastModified Time None Recorded Concern Status LastModified by Organization Details LastModified Time None Recorded Advance Directives Directive None Recorded Payers Insurance Date Sequence Insurance Name Policy Number Policy Alcaraz Covered Member ID Alcaraz Member ID Guarantor Name 09/22/2024 1 [facility] [id number] Demarco Doss [id number] Demarco Doss 07/05/2024 1 [facility] NET PLAN (MEDICAID HMO) [id number] Demarco Doss [id number] Demarco Doss Notes Date Note Type Note Provider Name and Address Organization Details Recorded Time 11/19/2023 text/html ROS as noted in the HPI patient of Dr Loredo of septoplasty 08/18/21reports he has a 2 yr hx of mucus in throat in [facility] it is thicksometimes uvula gets stuck to side of throat06/24/23 nasal endoscopy was benign tobacco - <1/2ppd, was able to stop since 06/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 He had endoscopy in [place] demonstrating h. 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 advised smoking cessation PSH:08/18/21 Moon LITTLE septo, turbs1 Jose Enrique LITTLE, Right laser stapes DARREN CRABTREE MD [address] [facility],[address], [address], [place] - [facility] 09/27/2024 09:05:55
== END 2025-04-23 12:13 | disposition home or self-care (01) ==
LOC: HO.HGI 09:36
PROVIDERS: Visit Provider Internal Medicine
DX: R09.89 Other specified symptoms and signs involving the circulatory and respiratory systems (principal); K21.9 Gastro-esophageal reflux disease without esophagitis; Z87.19 Personal history of other diseases of the digestive system; Z80.0 Family history of malignant neoplasm of digestive organs
CPT/HCPCS: 99214

== ENCOUNTER 2025-04-23 09:35 | Outpatient (REF) | payer OTHER, SELFPAY ==
--- OUTSIDE RECORDS SUMMARY | 2025-04-24 18:05 | XMS_ITS | Clinical Summary ---
Author Organization [facility] Address [address] [place] [address] Care Team Providers Care Test Lead Application Testing Name Role Phone Sravani Garcia SHAJI Primary [...] Overview (10/29/2014): Sleep Studies done 10/12/2014 at [facility] mild obstructive sleep apnea Obesity 09/10/2014 Immunizations [...] 10/19/2024 Tobacco Cessation Counseling (#1) 10/19/2024 023 [id number] ( season) 2025 021, 10/06/2020 Imm-Influenza (#1) [...] HEPATITIS C ANTIBODY NON-REACT SHON NON-REACT SHON [employer] SIGNAL TO CUT-OFF 0.05 <1.00 [employer] Comment: HCV antibody was non-reactive. There is no laboratory evidence of HCV infection. In most cases, no further action is required. However, if recent HCV exposure is suspected, a test for HCV RNA (test code 05943) is suggested. For additional information please refer to http://education.Twistle/faq/LNJ12f8 (This link is being provided for informational/ educational purposes only.) Blood Blood / Unknown 08/17/2022 1 1:32 AM EST 08/17/2022 11:33 AM EST Narrative [facility] - 08/18/2022 3:31 PM EST FASTING:YES us Yasmany Pugh MD LAB - BLOOD DRAW Final Result Performing Organization Address [facility] de Phone Number [facility] [address] [address], [place] [address] ([facility]PLACED BY [facility]) [place] [address] * HIV 1/2 AG & AB W/RFLX (4TH GEN) (08/17/2022 11:32 AM EST) HIV AG/AB, 4TH GEN NON-REAC TIVE NON-REAC TIVE [place] [facility] Comment: HIV-1 antigen and HIV-1/HIV-2 antibodies [...] purpose. For additional information please refer to http://education.Communication Science.[employer]ior [employer]/faq/UYT201 (This link is being provided for informational/ educational purposes only.) The performance of this assay has not been clinically validated in patients less than 2 years old. Blood Blood / Unknown 08/17/2022 1 1:32 AM EST 08/17/2022 11:33 AM EST Narrative [facility] - 08/18/2022 3:31 PM EST FASTING:YES us Yasmany Pugh MD LAB - BLOOD DRAW Final Result Performing Organization Address [facility]/ZIP Co de Phone Number [facility] [address] [address], [place] [facility] [address] [facility] ([address]) [place] [address] * (ABNORMAL) COMPRE METAB PANEL (08/17/2022 11:32 AM EST) GLUCOSE 92 65 - 99 mg/dL [place] [facility] Comment: Fasting reference interval UREA NITROGEN (BUN) 15 7 - 25 mg/dL [place] [facility] CREATININE (blood) 0.89 0.60 - 1.26 mg/dL [place] [facility] EGFR 116 > OR = 60 mL/min/1 .73m2 [place] [facility] Comment: The eGFR is based on the CKD-EPI 2020 equation. To calculate the new eGFR from a previous Creatinine or Cystatin C result, go to https://www.kidney.org/professionals/ kdoqi/gfr%5Fcalculator BUN/CREATININE RATIO NOT APPLICABLE 6 - [place] [facility] SODIUM 138 135 - 146 mmol/L [place] [facility] POTASSIUM 4.7 3.5 - 5.3 mmol/L [place] [facility] CHLORIDE 103 98 - 110 mmol/L [place] [facility] CARBON DIOXIDE 28 20 - 32 mmol/L [place] [facility] CALCIUM 10.2 8.6 - 10.3 mg/dL [place] [facility] PROTEIN, TOTAL 8.4(H) 6.1 - 8.1 g/dL [place] [facility] ALBUMIN 4.8 3.6 - 5.1 g/dL [place] [facility] GLOBULIN 3.6 1.9 - 3.7 g/dL (calc) [place] [facility] ALBUMIN/GLOBUL IN RATIO 1.3 1.0 - 2.5 (calc) [place] [facility] BILIRUBIN, TOTAL 0.4 0.2 - 1.2 mg/dL [place] [facility] ALKALINE PHOSPHATASE 87 36 - 130 U/L [place] [facility] AST 26 10 - 40 U/L [place] [facility] ALT 45 9 - 46 U/L [place] [facility] Blood Blood / Unknown 08/17/2022 1 1:32 AM EST 08/17/2022 11:33 AM EST Narrative [facility] - 08/18/2022 3:31 PM EST FASTING:YES Yasmany Pugh MD LAB - BLOOD DRAW Edited Result - Final [facility] [address] [facility] [address]RD [place] [address], [facility] [address] [facility] ([address]) [place] [address] from Last 3 Months or Most Recently Relevant to Health Maintenance Insurance [place] D[place] [facility] PLAN Member Subscriber Plan / Payer (Ef fective 2023-Present) Name:Demarco Evans Relation to Subscriber:Self Name:Demarco Evans Payer ID:[id number] Type:Medicaid Address: [address] [address] [place] [address] Care Teams Test Lead Application Testing Relationship Specialty Start Date End Date Sravani Garcia FNP [address] [place] [address] PCP - General Family Medicine, HAND PASTER 12/29/24
--- OUTSIDE RECORDS SUMMARY | 2025-04-24 18:05 | XMS_ITS | Clinical Summary ---
Author Organization [facility] Address [address] [place] [address] Phone Care Team Providers Care Solder Making Laborer Name Role Phone Tasia Peguero MD Primary Care Prov ider Allergies No known active allergies Medications fluticasone propionate (FLONASE) 50 mcg/actuation nasal spray 1 [place] by Nasal route daily. 1 spray each [...] Most Recently Relevant to Health Maintenance Insurance [facility] Care Teams Solder Making Laborer Relationship Specialty Start Date End Date Tasia Peguero MD PCP - General Internal Medicine 03/09/17
== END 2025-04-23 09:36 | disposition home or self-care (01) ==
LOC: HO.LNP 09:35
PROVIDERS: Visit Provider Internal Medicine
DX: K21.9 Gastro-esophageal reflux disease without esophagitis (principal); R09.89 Other specified symptoms and signs involving the circulatory and respiratory systems; Z80.0 Family history of malignant neoplasm of digestive organs; Z87.19 Personal history of other diseases of the digestive system
CPT/HCPCS: 83013; 99212